=== PATIENT | male | born 1980 | race Caucasian/White ===

== ENCOUNTER 2017-02-03 15:09 | Emergency (ER) | payer MEDICAID ==
[~2017-02-03] VITALS: Ht 172.7 cm; Wt 77.1 kg
[2017-02-03] MEDS ORDERED: NS 1,000 ML IV SCH (15:22)
[2017-02-03] MEDS ORDERED: ONDANSETRON 4MG/2ML VIAL (J2405) IV ONE (15:30)
[2017-02-03] MEDS ORDERED: HYDROmorphone HCL 1 MG/ML SYRINGE (J1170) IV ONE ×2 (15:30→17:45)
[2017-02-03] MEDS ORDERED: GASTROGRAFIN SOLUTION 30ML (Q9963) As Ordered ONE (15:37)
[2017-02-03 17:04] LABS: BASO # 0.1 K/mm3 (0.0-0.2); BASO % 0.5 % (0.0-1.0); EOS # 0.4 K/mm3 (0.0-0.50); EOS % 3.1 % (0.0-3.0); LARGE UNSTAINED CELL # 0.2 K/mm3 (0.0-0.4); LARGE UNSTAINED CELL % 1.3 % (0.0-4.0); LYMPH # 1.6 K/mm3 (1.5-4.5); MEAN CORPUSCULAR HEMOGLOBIN 29.9 pg (27.0-33.0); MEAN CORPUSCULAR VOLUME 90.5 fl (80.0-96.0); MONO # 0.8 K/mm3 (0.0-0.8); MONO % 6.7 % (0.0-5.0); NEUTROPHILS # 9.8 K/mm3 (1.8-7.7); NEUTROPHILS % 77.5 % (36.0-66.0); PLATELET COUNT, AUTOMATED 368 k/mm3 (150-450); RED CELL DISTRIBUTION WIDTH 13.4 % (11.5-14.5); WHITE BLOOD COUNT 12.7 K/mm3 (4.0-10.0)
[2017-02-03 17:21] LABS: ALBUMIN 3.8 GM/DL (3.2-5.2); ALBUMIN/GLOBULIN RATIO 1.15 (1.00-1.93); ALKALINE PHOSPHATASE 100 U/L (45-117); ALT/SGPT 34 U/L (12-78); ANION GAP 8 MEQ/L (8-16); AST/SGOT 29 U/L (15-37); BILIRUBIN,DIRECT 0.1 MG/DL (0.0-0.2); BILIRUBIN,TOTAL 0.4 MG/DL (0.2-1.0); BLOOD UREA NITROGEN 9 MG/DL (7-18); CALCIUM LEVEL 8.7 MG/DL (8.5-10.1); CARBON DIOXIDE LEVEL 27 MEQ/L (21-32); CHLORIDE LEVEL 103 MEQ/L (98-107); CREATININE FOR GFR 0.75 MG/DL (0.70-1.30); GLOMERULAR FILTRATION RATE > 60.0 (>60); GLUCOSE, FASTING 92 MG/DL (70-105); SODIUM LEVEL 138 MEQ/L (136-145); TOTAL PROTEIN 7.1 GM/DL (6.4-8.2)
[2017-02-03] MEDS ORDERED: GASTROGRAFIN SOLUTION 30ML (Q9963) PO ONE ×2 (17:45→18:05)
[2017-02-03 17:59] LABS: ERYTHROCYTE SEDIMENTATION RATE 15 mm/hr (0-15)
--- NOTE | 2017-02-03 18:20 | REPUSA ---
CT of the abdomen and pelvis without contrast Clinical statement: Pain.. History of Crohn's disease. Technique: Multiple axial CT images were obtained from the base of the lungs to the floor of the pelv is utilizing 5 mm axial slices after administration of oral contrast. Coronal and sagittal reconstruc tions were also obtained. No comparison is available. Findings: Chest: The visualized lung bases are clear. Abdomen: The kidneys are normal in size bilaterally. There is no evidence of hydronephrosis or nephro lithiasis. The liver, spleen, pancreas, gallbladder and adrenal glands are unremarkable. The aorta de monstrates normal caliber and contour. There is no abdominal lymphadenopathy or ascites. Pelvis: The bowel is unremarkable, with no obstructive or inflammatory changes. Small bowel anastomos is is seen in the right lower quadrant. The urinary bladder is within normal limits. There is no pelv ic lymphadenopathy or ascites. The other pelvic structures appear unremarkable. Bones: There are no suspicious osseous abnormalities seen. Impression: Unremarkable CT examination of the abdomen and pelvis. No acute abnormalities appreciated . No obstructive or inflammatory bowel changes.
[2017-02-03] MEDS ORDERED: ZOFR4TAB3 PO (18:36)
[2017-02-03] MEDS ORDERED: PRED20TA PO (18:37)
[2017-02-03] MEDS ORDERED: methylPREDNISolone INJ 125 MG/2 ML VIAL (J2930) IV ONE (18:45)
[2017-02-03] MEDS ORDERED: ACETAMINOPHEN TAB 650MG DOSE (2X325MG) PO ONE (19:00)
[2017-02-03 19:47] VITALS: BP 136/79
[2017-02-03] MEDS ORDERED: TYLE500T78 PO (21:42)
[2017-02-04] MEDS ORDERED: PERCOCET PO (12:24)
[2017-02-04] MEDS ORDERED: FLAG500T PO ×2 (12:24→16:14)
[2017-02-04] MEDS ORDERED: CIPR500T89 PO ×2 (12:24→16:14)
[2017-02-04] MEDS ORDERED: OXYC1TAB23 PO (16:14)
== END 2017-02-03 19:11 | disposition home or self-care (01) ==
LOC: EDBD 15:09 → M ED 16:54
DX: R10.31 Right lower quadrant pain (principal); R11.2 Nausea with vomiting, unspecified; K50.90 Crohn's disease, unspecified, without complications; Z79.899 Other long term (current) drug therapy; Z88.5 Allergy status to narcotic agent; F17.210 Nicotine dependence, cigarettes, uncomplicated
CPT/HCPCS: 74176; 80048; 80076; 81001; 83690; 85025; 85652; 86140; 87086; 93041; 96374; 96375; 96376; 99285; J1170; J2405; J2930; Q9963

== ENCOUNTER 2017-02-03 20:05 | Inpatient (IN) | payer MEDICAID ==
[~2017-02-03] VITALS: Ht 172.7 cm; Wt 70.9 kg
[~2017-02-03 20:05] MED LIST: PRED20TA PO; ZOFR4TAB3 PO
[2017-02-03] MEDS ORDERED: NS 1,000 ML IV SCH ×2 (20:31→21:35)
[2017-02-03] MEDS ORDERED: HYDROmorphone HCL 1 MG/ML SYRINGE (J1170) IV ONE (20:45)
[2017-02-03 20:59] LABS: BASO % 0.3 % (0.0-1.0); EOS # 0.3 K/mm3 (0.0-0.50); EOS % 2.1 % (0.0-3.0); LARGE UNSTAINED CELL # 0.1 K/mm3 (0.0-0.4); LARGE UNSTAINED CELL % 0.8 % (0.0-4.0); LYMPH % 7.3 % (24.0-44.0); MEAN CORPUSCULAR HEMOGLOBIN 30.2 pg (27.0-33.0); MEAN CORPUSCULAR HGB CONC 32.5 g/dl (32.0-36.5); MEAN CORPUSCULAR VOLUME 92.9 fl (80.0-96.0); MONO # 0.4 K/mm3 (0.0-0.8); MONO % 2.7 % (0.0-5.0); NEUTROPHILS # 11.5 K/mm3 (1.8-7.7); NEUTROPHILS % 86.9 % (36.0-66.0); PLATELET COUNT, AUTOMATED 387 k/mm3 (150-450); RED CELL DISTRIBUTION WIDTH 13.3 % (11.5-14.5); WHITE BLOOD COUNT 13.3 K/mm3 (4.0-10.0)
[2017-02-03] MEDS ORDERED: metroNIDAZOLE 500 MG in APPROPRIATE DILUENT 1 EA IV ONE (21:30)
[2017-02-03] MEDS ORDERED: CIPROFLOXACIN 400 MG in APPROPRIATE DILUENT 1 EA IV ONE (21:30)
[2017-02-03] MEDS ORDERED: TYLE500T78 PO (21:42)
[2017-02-03 21:51] LABS: ALBUMIN 3.7 GM/DL (3.2-5.2); ALBUMIN/GLOBULIN RATIO 1.06 (1.00-1.93); ALKALINE PHOSPHATASE 99 U/L (45-117); ALT/SGPT 35 U/L (12-78); ANION GAP 7 MEQ/L (8-16); AST/SGOT 34 U/L (15-37); BILIRUBIN,DIRECT 0.1 MG/DL (0.0-0.2); BILIRUBIN,TOTAL 0.3 MG/DL (0.2-1.0); BLOOD UREA NITROGEN 9 MG/DL (7-18); CALCIUM LEVEL 8.5 MG/DL (8.5-10.1); CARBON DIOXIDE LEVEL 29 MEQ/L (21-32); CHLORIDE LEVEL 102 MEQ/L (98-107); CREATININE FOR GFR 0.77 MG/DL (0.70-1.30); GLOMERULAR FILTRATION RATE > 60.0 (>60); GLUCOSE, FASTING 115 MG/DL (70-105); POTASSIUM SERUM 4.4 MEQ/L (3.5-5.1); SODIUM LEVEL 138 MEQ/L (136-145); TOTAL PROTEIN 7.2 GM/DL (6.4-8.2)
[2017-02-03] MEDS ORDERED: PERCOCET 5MG/325MG TAB PO PRN (22:15)
[2017-02-03 22:40] VITALS: BP 117/62
[2017-02-04] MEDS ORDERED: diphenhydrAMINE INJ 50MG/ML VIAL (J1200) IV ONE (01:15)
[2017-02-04] MEDS ORDERED: MORPHINE 2 MG/ML 1ML SYRINGE IV ONE ×3 (01:15→11:00)
--- NOTE | 2017-02-04 05:59 | HPE ---
DATE OF ADMISSION: 02/03/2017 PRIMARY CARE PROVIDER: The patient goes to [facility]. REASON FOR ADMISSION: Abdominal pain. HISTORY OF PRESENT ILLNESS: The patient is a 36-year-old male, past medical history significant for Crohn's disease, presented to the emergency room complaining of abdominal pain. The patient was recently seen in the emergency room for same complaint earlier that day. He was sent home to followup with the primary care provider. However, the patient returned back to the emergency room complaining of abdominal pain again, unable to tolerate it at home. The patient also had a low-grade temperature and a mild leukocytosis of 12.7, so hospitalist was called for the admission. The patient states he has been having vomiting and abdominal pain started last night mainly in the right lower quadrant and two episodes of vomiting. Denies any diarrhea or constipation. Denies any blood per stool. He stated he had a fever as high as 101 at home, went to see his doctor at [facility] and he was sent to the emergency room. At this time, the patient received one dose of Dilaudid. He states his pain is still there, but has improved slightly. No other symptoms at this time. PAST MEDICAL HISTORY: Significant for Crohn's disease. PAST SURGICAL HISTORY: Significant for hernia repair, exploratory laparotomy (ex lap) and appendectomy. ALLERGIES: To MORPHINE, reaction erythema at the injection site. SOCIAL HISTORY: The patient states he smokes about 3-4 cigarettes a day for the past 10 years. Denies any alcohol use. Lives at home with his . HOME MEDICATIONS: Significant for acetaminophen 1000 mg by mouth every 4 hours as needed for pain. REVIEW OF SYSTEMS: 12-point review of systems obtained all of which was negative except for those mentioned above. FAMILY HISTORY: Noncontributory. PHYSICAL FINDINGS: Vital signs: On admission, temperature 98. At one point, it was found to be slightly elevated during the first admission, but currently he has been afebrile with the highest of temperature 99.9, heart rate 84, respiratory rate 18. Blood pressure is 170/62, pulse oximetry 93% on room air. HEENT: Pupils equal, round, reactive to light and accommodation. Neck: Supple. No jugular venous distention (JVD). Cardiac: Positive S1, S2. No murmurs appreciated. Abdomen: Slight tenderness to palpation, worse on the right lower quadrant. Extremities: No clubbing, cyanosis or edema. LABORATORY FINDINGS: WBC 13.3, hemoglobin 14.8, hematocrit 45.5, platelet count 387. Sodium 138, potassium 4.4, chloride 102, BUN 9, creatinine 0.77, fasting glucose 115, bilirubin 0.3, direct bilirubin 0.1, AST 34, ALT 35, alkaline phosphatase 99, lipase 108. IMAGING STUDIES: The patient had an abdominal CAT scan which was unremarkable. No acute abnormalities. No obstructive or inflammatory findings. ASSESSMENT AND PLAN: 1. Abdominal pain. Unknown etiology, may be due to Crohn's flare-up; however, the patient has been afebrile, mild leukocytosis. He had received a dose of Cipro, Flagyl in the emergency room. We will continue Cipro, Flagyl. Dr. Goodwin was consulted from the emergency room. He has agreed to see the patient in consultation. We will continue to manage the patient's pain control. We will make the patient nothing by mouth with intravenous (IV) fluids at a rate of 70 mL an hour until pain resolves. 2. History of Crohn's disease. 3. History of tobacco abuse. 4. Deep venous thrombosis (DVT) prophylaxis. Lovenox subcutaneously daily.
[2017-02-04 06:00] VITALS: BP 109/59
[2017-02-04] MEDS ORDERED: metroNIDAZOLE 500 MG in APPROPRIATE DILUENT 1 EA IV SCH (06:00)
[2017-02-04 06:01] LABS: BASO % 0.1 % (0.0-1.0); EOS % 0.2 % (0.0-3.0); LARGE UNSTAINED CELL # 0.1 K/mm3 (0.0-0.4); LARGE UNSTAINED CELL % 0.5 % (0.0-4.0); LYMPH # 0.9 K/mm3 (1.5-4.5); MEAN CORPUSCULAR HEMOGLOBIN 30.5 pg (27.0-33.0); MEAN CORPUSCULAR HGB CONC 32.7 g/dl (32.0-36.5); MEAN CORPUSCULAR VOLUME 93.4 fl (80.0-96.0); MONO # 0.3 K/mm3 (0.0-0.8); MONO % 3.4 % (0.0-5.0); NEUTROPHILS # 8.6 K/mm3 (1.8-7.7); NEUTROPHILS % 86.8 % (36.0-66.0); PLATELET COUNT, AUTOMATED 345 k/mm3 (150-450); RED CELL DISTRIBUTION WIDTH 13.2 % (11.5-14.5); WHITE BLOOD COUNT 9.9 K/mm3 (4.0-10.0)
[2017-02-04 06:20] LABS: ALBUMIN 3.3 GM/DL (3.2-5.2); ALBUMIN/GLOBULIN RATIO 0.87 (1.00-1.93); ALKALINE PHOSPHATASE 87 U/L (45-117); ALT/SGPT 31 U/L (12-78); ANION GAP 8 MEQ/L (8-16); AST/SGOT 22 U/L (15-37); BILIRUBIN,TOTAL 0.3 MG/DL (0.2-1.0); BLOOD UREA NITROGEN 10 MG/DL (7-18); CALCIUM LEVEL 8.2 MG/DL (8.5-10.1); CARBON DIOXIDE LEVEL 25 MEQ/L (21-32); CHLORIDE LEVEL 106 MEQ/L (98-107); CREATININE FOR GFR 0.69 MG/DL (0.70-1.30); GLOMERULAR FILTRATION RATE > 60.0 (>60); GLUCOSE, FASTING 141 MG/DL (70-105); SODIUM LEVEL 139 MEQ/L (136-145); TOTAL PROTEIN 7.1 GM/DL (6.4-8.2)
[2017-02-04 07:29] LABS: ERYTHROCYTE SEDIMENTATION RATE 23 mm/hr (0-15)
[2017-02-04] MEDS ORDERED: ENOXAPARIN 40 MG/0.4 ML SYRINGE (J1650) SC SCH (09:00)
[2017-02-04] MEDS ORDERED: PERCOCET 5MG/325MG TAB PO PRN (09:15)
[2017-02-04] MEDS ORDERED: CIPROFLOXACIN 400 MG in APPROPRIATE DILUENT 1 EA IV SCH (11:00)
--- NOTE | 2017-02-04 11:09 | IPNPDOC ---
Subjective Date Seen The patient was seen on 02/04/17. Subjective Chief Complaint/HPI The patient is a 36-year-old male admitted with a reason for visit of Abd Pain. Events since last encounter Patient was seen this morning at bedside. he reports that his abd pain started on . He had right sided abd pain and right sided distention. He reports that he does get right sided abd pain and distention with Crohn's but would also get blood diarrhea. He had some nausea and emesis yesterday but non this morning. He is afebrile and vitals are stable. Had a low grade temp in the ED and reported fever at home. Denies diarrhea, constipation, BRBPR, lightheadedness, dizziness, headache. Objective Physical Examination General Exam: Positive: Alert, Cooperative, No Acute Distress Eye Exam: Positive: Conjunctiva & lids normal, EOMI, Negative: Sclera icteric ENT Exam: Positive: Atraumatic, Mucous membr. moist/pink, Pharynx Normal Neck Exam: Positive: Supple, Negative: thyromegaly Chest Exam: Positive: Clear to auscultation, Normal air movement Heart Exam: Positive: Rate Normal, Regular Rhythm, Normal S1, Normal S2, Negative: Murmurs Abdomen Exam: Positive: Normal bowel sounds, Soft, Tenderness (right sided), Other (right side more puffy) Extremity Exam: Positive: Normal pulses, Negative: Edema, Tenderness Skin Exam: Positive: Nl turgor and temperature, Negative: Rash Neuro Exam: Positive: Normal Speech, Strength at 5/5 X4 ext, Sensation Intact, Cranial Nerves 3-12 NL Psych Exam: Positive: Mental status NL, Mood NL, Oriented x 3 Assessment /Plan Problems (1) Abdominal pain Status: Acute Problem Text: * Possibly infectious given history of fever and elevated white count vs Crohn' s flare * Also reports hernia surgery about 1 month ago at [facility] * Dr Goodwin has been consulted and will see the patient this morning * Pain medication as needed * Currently on Cipro and Flagyl for possible infectious etiology * Abd/pelvis CT on 02/03 was unremarkable (2) Crohn's disease Status: Chronic Problem Text: * Reports that he would get right sided abd pain with Crohn's flare, but also would have bloody diarrhea which he does not currently have * Reports that this has been in remission for at least 5 years * Not currently on any treatment but reports being on several meds including Pentasa/Asacol, 6-MP, steroids years ago * He has history of 3 resections, last one in 2011 in [place] * Last colonoscopy he believes may have been in 2009 * Does not currently follow with GI Plan/VTE VTE Prophylaxis Ordered?: Yes (lovenox) VS, I&O, 24H, Fishbone Vital Signs/I&O Vital Signs Date Time Temp Pulse Resp B/P (MAP) Pulse Ox O2 Delivery O2 Flow Rate FiO2 02/04/17 10:48 18 02/04/17 09:40 Room Air 02/04/17 06:00 97.8 86 109/59 (76) 93 I&O- Last 24 Hours up to 6 AM 02/04/17 06:00 Intake Total 970 ml Output Total 1325 ml Balance -355 ml Laboratory Data CBC/BMP Laboratory Tests 02/03/17 20:49 Red Blood Count 4.90, Mean Corpuscular Volume 92.9, Mean Corpuscular Hemoglobin 30.2, Mean Corpuscular Hemoglobin Concent 32.5, Red Cell Distribution Width 13.3 , Neutrophils (%) (Auto) 86.9 H, Lymphocytes (%) (Auto) 7.3 L, Monocytes (%) ( Auto) 2.7, Eosinophils (%) (Auto) 2.1, Basophils (%) (Auto) 0.3, Neutrophils # ( Auto) 11.5 H, Lymphocytes # (Auto) 1.0 L, Monocytes # (Auto) 0.4, Eosinophils # (Auto) 0.3, Basophils # (Auto) 0.0 02/03/17 21:15 02/04/17 05:25 Red Blood Count 4.77, Mean Corpuscular Volume 93.4, Mean Corpuscular Hemoglobin 30.5, Mean Corpuscular Hemoglobin Concent 32.7, Red Cell Distribution Width 13.2 , Neutrophils (%) (Auto) 86.8 H, Lymphocytes (%) (Auto) 9.0 L, Monocytes (%) ( Auto) 3.4, Eosinophils (%) (Auto) 0.2, Basophils (%) (Auto) 0.1, Neutrophils # ( Auto) 8.6 H, Lymphocytes # (Auto) 0.9 L, Monocytes # (Auto) 0.3, Eosinophils # ( Auto) 0.0, Basophils # (Auto) 0.0, Calcium Level 8.2 L, Aspartate Amino Transf ( AST/SGOT) 22, Alanine Aminotransferase (ALT/SGPT) 31, Alkaline Phosphatase 87, Total Bilirubin 0.3, Total Protein 7.1, Albumin 3.3 GME ATTESTATION GME ATTESTATION My preceptor for this patient encounter was physically present in the building during the encounter and was fully available. As needed, all aspects of the patient interview, examination, medical decision making process, and medical care plan development were reviewed and approved by the preceptor. Preceptor is aware and concurs with the plan as stated in the body of this note and will attest to such by his/her cosignature. OLIVIA MAC DO February 04, 2017 11:09
[2017-02-04] MEDS ORDERED: PERCOCET PO (12:24)
[2017-02-04] MEDS ORDERED: FLAG500T PO ×2 (12:24→16:14)
[2017-02-04] MEDS ORDERED: CIPR500T89 PO ×2 (12:24→16:14)
[2017-02-04] MEDS ORDERED: OXYC1TAB23 PO (16:14)
--- NOTE | 2017-02-05 14:09 | DSES ---
DATE OF ADMISSION: 02/03/2017 DATE OF DISCHARGE: 02/04/2017 DISCHARGE DIAGNOSES: 1. Abdominal pain. 2. Crohn disease. CONSULTANTS: Dr. Everardo Goodwin, surgery. DISCHARGE MEDICATIONS: - ciprofloxacin 500 mg by mouth twice a day for 7 days - Flagyl 500 mg by mouth every 8 hours for 7 days - Percocet 1 tablet by mouth every 6 hours as needed, 12 tablets - Tylenol 1000 mg by mouth as needed BRIEF HOSPITAL COURSE: The patient presented complaining of right-sided abdominal pain with mild distension of his abdomen. He did have a low grade temperature in the emergency department and a mild leukocytosis. He reported that he also had complaints of fever at home as well as nausea and emesis. He denied any diarrhea or constipation. No blood in the stool. He does have history of Crohn disease and reports that this abdominal pain does not feel anything like his Crohn disease flare-up. He reports that he has been in remission for Crohn for at least 5 years. He is status post three resections, last colon resection was in 2011. He reports that he may not had a colonoscopy since 2009. He was admitted to the hospital, started on Cipro and Flagyl, as well as pain medication. Next day he was evaluated by surgery, which did not feel that this was an acute issue. He did have some mild inflammation on his CT in the area of his hernia repair. No abscess or infection reported. After being evaluated by surgery, patient reported that he felt that his abdominal pain had improved and that he really wanted to go home. He was able to tolerate his diet without any significant gastrointestinal (GI) upset or increase in abdominal pain. Given that the patient wanted to go home and had reported improvement, he was subsequently stable for discharge. LABORATORY DATA ON DISCHARGE: WBC 9.9, hemoglobin 14.5, hematocrit 44.5, platelet count 345. Sodium 139, potassium 4.0, chloride 106, carbon dioxide 25, anion gap 8, BUN 10, creatinine 0.69, GFR greater than 60, fasting glucose 141, calcium 8.2, total bilirubin 0.3, AST 22, ALT 31, alkaline phosphatase 87, C-reactive protein 8, total protein 7.1, albumin 3.3. IMAGING: Patient had an abdomen/pelvis CT. No acute abnormalities. No obstruction or inflammatory bowel changes. PHYSICAL EXAMINATION AT DISCHARGE: Temperature 97.8, pulse 86, respiratory rate 18, blood pressure 109/59, pulse oximetry 93% on room air. General: The patient is alert and oriented times three. In no acute distress. HEENT: Normocephalic, atraumatic. Extraocular muscles are intact. Pupils are equally round and reactive to light. No scleral icterus. Moist mucosa. Neck: Supple. No cervical lymphadenopathy. No thyromegaly. Heart: Normal S1, S2, regular rate and rhythm. No murmurs appreciated. Lungs: Clear to auscultation bilaterally. No rales, rhonchi or wheezing. Abdomen: Soft. Mild tenderness to deep palpation in the right side. Not significantly distended. Bowel sounds are present. No rebound, guarding or rigidity. Extremities: No cyanosis or edema. Positive pedal pulses bilaterally. Skin: Warm and dry. No rashes noted. Neurologic: No focal deficits. Cranial nerves II-XII are grossly intact. Motor sensation intact. DISCHARGE INSTRUCTIONS: The patient is discharged in stable condition. He should followup with his surgeon who performed his hernia repair next week at [facility]. Followup with his primary care physician next week. He should also be given a referral for gastroenterology for further evaluation of possibility of Crohn disease. Recommending upper GI series, upper and lower endoscopy for further evaluation. Will finish his course of antibiotics in case there is a mild infectious component. Pain medication as needed. He should return to the emergency department with any worsening or recurring symptoms. Activity as tolerated. Diet as tolerated. My preceptor for this patient encounter was Emiliana Conde MD. The preceptor was physically present in the building during the encounter and was fully available. As needed, all aspects of the patient interview, examination, medical decision making process, and medical care plan development were reviewed and approved by the preceptor. The preceptor is aware and concurs with the plan as stated in the body of this note and will attest to such by his/her co-signature.
== END 2017-02-04 13:38 | disposition home or self-care (01) | DRG 245 ==
LOC: M ED 21:06 → M ED INP 21:35 → M MSPAV 22:44
PROVIDERS: ADMIT Internal Medicine; ATTEND General Practice
DX: K50.90 Crohn's disease, unspecified, without complications (principal); F17.210 Nicotine dependence, cigarettes, uncomplicated; Z79.899 Other long term (current) drug therapy; Z88.5 Allergy status to narcotic agent